=== PATIENT | male | born 1985 | race American Indian/Alaskan Native ===

== ENCOUNTER 2017-06-05 08:54 | Emergency (ER) | payer BC ==
[2017-06-05 08:54] VITALS: BMI 34.4
[2017-06-05 09:19] VITALS: BP 147/75; PULSE 57; RESP 18; TEMP 97.8; O2SAT 99
--- NOTE | 2017-06-05 10:04 | C.PDOC ---
History Of Present Illness 31-year-old male presents to the ED for evaluation of new onset left leg pain for 6 days. Patient notes history of prior left-sided back pain but currently denies back pain. Patient notes pain is intermittent, sharp, and radiates to his hip, thigh to knee. Patient denies associated numbness or weakness. Patient denies trauma. Patient found no relief after using NSAIDS. NEW ONSET L LEG PAIN X 6 DAYS. HO PRIOR L SIDED BACK PAIN BUT CURRENTLY DENIES BACK PAIN. INTERMIT SHARP RADIATION HIP, THIGH TO KNEE. NO ASSOC W WEAK OR NUMB. NO TRAUMA. NO RELIEF W NSAIDS EXAM MILD DIST NONTOXIC BACK NONTEND AROM WO DIFF GAIT WNL NEURO INTACT Time Seen by Provider: 06/05/17 09:56 Chief Complaint (Nursing): Back Pain History Per: Patient History/Exam Limitations: no limitations Onset/Duration Of Symptoms: Days (6) Current Symptoms Are (Timing): Still Present Additional History Per: Patient - Ankle/Foot Description Of Injury: denies: Fell, Struck With Object, Struck Against Object, Twisted Past Medical History Reviewed: Historical Data, Nursing Documentation, Vital Signs Vital Signs: Last Vital Signs Temp 97.8 F 06/05/17 09:17 Pulse 57 L 06/05/17 09:17 Resp 18 06/05/17 09:17 BP 147/75 06/05/17 09:17 Pulse Ox 99 06/05/17 12:03 - Medical History PMH: No Chronic Diseases Surgical History: No Surg Hx Family History: States: Unknown Family Hx - Social History Hx Tobacco Use: No Hx Alcohol Use: No Hx Substance Use: No - Immunization History Hx Tetanus Toxoid Vaccination: No Hx Influenza Vaccination: No Hx Pneumococcal Vaccination: No Review Of Systems Musculoskeletal: Positive for: Leg Pain (left), Other (left hip, thigh, and knee pain ). Negative for: Back Pain Neurological: Negative for: Weakness, Numbness Physical Exam - Physical Exam Appears: Non-toxic, Other (mild distress ) Skin: Normal Color, Warm, Dry Head: Atraumatic, Normacephalic Eye(s): bilateral: Normal Inspection Oral Mucosa: Moist Neck: Supple Chest: Symmetrical, No Deformity, No Tenderness Cardiovascular: Rhythm Regular, No Murmur Respiratory: Normal Breath Sounds, No Rales, No Rhonchi, No Wheezing Back: Normal Inspection, No Vertebral Tenderness, No Decreased ROM, No Paraspinal Tenderness Extremity: Normal ROM, Capillary Refill (less than 2 seconds ) Neurological/Psych: Oriented x3, Normal Speech, Normal Cognition Gait: Steady ED Course And Treatment O2 Sat by Pulse Oximetry: 99 (on RA) Pulse Ox Interpretation: Normal Progress Note: Flexeril PO and Toradol IM administered. Progress - Re-Evaluation Re-evaluation Note: 06/05/17 10:03 PRIOR ER EVAL FOR L BACK PAIN W LEG PAIN. 06/05/17 10:07 PT REQUESTING "SAME PAIN SHOT LIKE LAST TIME" - Data Reviewed Data Reviewed: Old records Disposition Counseled Patient/Family Regarding: Diagnosis, Need For Followup, Rx Given - Disposition Referrals: YOUR,PMD [Other] Disposition: HOME/ ROUTINE Disposition Time: 10:04 Condition: IMPROVED Prescriptions: Cyclobenzaprine [Flexeril] 10 mg PO TID #15 tab Dexamethasone 12 mg PO ONCE #2 tab Ibuprofen [Motrin] 600 mg PO Q6 #30 tab Instructions: Sciatica (ED) Forms: [facility] (Liberian), Work Excuse - Clinical Impression Clinical Impression: Sciatica - Scribe Statement The provider has reviewed the documentation as recorded by the Scribe (Beena Aguilera) Provider Attestation: All medical record entries made by the Scribe were at my direction and personally dictated by me. I have reviewed the chart and agree that the record accurately reflects my personal performance of the history, physical exam, medical decision making, and the department course for this patient. I have also personally directed, reviewed, and agree with the discharge instructions and disposition.
== END 2017-06-05 10:32 | disposition home or self-care (01) ==
LOC: C.ER 08:54
DX: M54.30 Sciatica, unspecified side (principal)
CPT/HCPCS: 96372; 99284; J1885